=== PATIENT | female | born 1980 | race African-American/Black ===

== ENCOUNTER 2019-12-11 17:18 | Emergency (ER) | payer MEDICAID ==
[~2019-12-11] VITALS: Ht 162.6 cm; Wt 102.0 kg
[2019-12-11] MEDS ORDERED: AMLODIPINE 5MG TABLET PO ONE (19:30)
[2019-12-11 21:23] VITALS: BP 162/90
== END 2019-12-11 23:45 | disposition home or self-care (01) ==
LOC: ER 17:18
DX: I16.0 Hypertensive urgency (principal)
CPT/HCPCS: 81025; 93005; 99283